=== PATIENT | female | born 2005 | race African-American/Black ===

== ENCOUNTER 2024-06-15 13:20 | Emergency (ER) | payer OTHER ==
[2024-06-15 13:28] VITALS: BP 114/62; PULSE 78; RESP 20; TEMP 98.8; BMI 36.9
[2024-06-15] MEDS ORDERED: IBUPROFEN 400 MG TABLET (FP) PO ONE (15:41)
[2024-06-15] MEDS: IBUPROFEN 400 MG TABLET (FP) PO ONE (15:44)
== END 2024-06-15 16:37 | disposition home or self-care (01) ==
LOC: JERFT 13:20
PROC: F09Z3XZ Cerumen Management Treatment using Cerumen Management Equipment (ICD-10-PCS; principal; 2024-06-15)
DX: H60.93 Unspecified otitis externa, bilateral (principal); H61.23 Impacted cerumen, bilateral; H92.03 Otalgia, bilateral
CPT/HCPCS: 99283-25